=== PATIENT | female | born 1995 | race Caucasian/White ===

== ENCOUNTER 2020-07-23 13:19 | Emergency (ER) | payer MEDICAID ==
[~2020-07-23] VITALS: Ht 157.5 cm; Wt 63.0 kg
[2020-07-23 13:22] VITALS: BP 123/77
[2020-07-23 15:41] LABS: BASOPHILS % 0.9 % (0.0-2.0); EOSINOPHILS % 2.1 % (0.0-5.0); HEMATOCRIT. 40.1 % (36.0-48.0); HEMOGLOBIN. 13.7 g/dL (12.0-16.0); LYMPHOCYTES % 39.8 % (20.0-50.0); MEAN CORPUSCULAR HEMOGLOBIN 28.6 pg (28.0-32.0); MEAN CORPUSCULAR VOLUME 83.9 fL (81.0-99.0); MEAN PLATELET VOLUME 9.3 fl (7.4-10.4); MONOCYTES % 8.1 % (2.0-8.0); NEUTROPHILS % 49.1 % (40.0-76.0); PLATELET 234 x1000/uL (130-400); RED BLOOD CELL COUNT 4.77 mill/uL (4.2-5.4); RED CELL DISTRIBUTION WIDTH 14.2 % (11.6-14.6)
[2020-07-23 15:58] LABS: CHLORIDE 107 mEq/L (98-107)
[2020-07-23 16:10] LABS: B-HCG QUANTITATIVE 65 mIU/mL (<3)
== END 2020-07-23 18:25 | disposition home or self-care (01) ==
LOC: ER 13:19
DX: O20.0 Threatened abortion (principal); Z3A.01 Less than 8 weeks gestation of pregnancy
CPT/HCPCS: 36415; 80053; 84702; 85025; 86850; 86900; 93005; 99284

== ENCOUNTER 2020-07-25 12:48 | Emergency (ER) | payer MEDICAID ==
[~2020-07-25] VITALS: Ht 157.5 cm; Wt 65.0 kg
[2020-07-25 14:22] VITALS: BP 111/75
== END 2020-07-25 14:28 | disposition home or self-care (01) ==
LOC: ER 12:48
DX: O03.9 Complete or unspecified spontaneous abortion without complication (principal)
CPT/HCPCS: 36415; 84702; 99283